=== PATIENT | female | born 1985 | race American Indian/Alaskan Native ===

== ENCOUNTER 2021-05-26 15:05 | Outpatient (CLI) | payer OTHER ==
[2021-05-26 15:38] LABS: INR 0.92 (0.87-1.13)
[2021-05-28 14:16] LABS: INR 0.94 (0.87-1.13)
[2021-05-28 14:17] LABS: Partial Thromboplastin Time 27.4 Sec. (24.2-36.6)
== END 2021-05-26 15:06 | disposition home or self-care (01) ==
LOC: LAB 15:05
DX: R79.89 Other specified abnormal findings of blood chemistry (principal)
CPT/HCPCS: 36415; 85610